=== PATIENT | female | born 1980 | race Caucasian/White ===

== ENCOUNTER 2016-08-18 22:32 | Emergency (ER) | payer SELFPAY ==
[~2016-08-18] VITALS: Ht 157.4 cm; Wt 77.1 kg
[~2016-08-18 22:32] MED LIST: ALLEGRA180 MG PO; AMINOPHYLLIN200 MG PO; AMOXICILLIN500 M2 PO; AMOXICILLIN500 MG PO; AMOXIL250 MG/5 M PO; AMOXIL400 MG/5 M PO; AMOXIL500 MG PO; ANAPROX DS550 MG PO; ANTIBIOTIC O500 U/GM TP; ATARAX25 MG PO; AURALGAN 14 ML14 ML OT; BACTRIM DS 8001 TA1 PO; BACTROBAN CREAM15 GM PO; CEFTIN250 MG/5 M PO; CEPHALEXIN250 MG/5 M PO; CEPHALEXIN500 M1 PO; CIPRO250 MG PO; CIPRO500 MG PO; CIPRODEX 0.3%-7.5 ML OT; CIPROFLOXACIN500 MG PO; CLINDAMYCIN150 MG PO; CORTISPORIN 1%-10 M1 OT; CYCLOBENZAPRINE10 MG PO; DAYPRO600 M1 PO; DELSYM30 MG/5 ML PO; DEPO PROVER150 MG/M1 IM; DIPHENHYDRAMINE50 M1 PO; FLAGYL500 MG PO; FLEXERIL10 MG PO; FLONASE ALLERG9.9 ML NS; FLONASE0.05 MG/AC NS; HYDROCODONE BIT1 T11 PO; HYDROCORTISONE30 G2 T; IBUPROFEN 30 M800 MG PO; KEFLEX250 MG PO; KEFLEX250 MG/5 M PO; KENALOG0.1% TP; KENALOG0.11 TP; LEXAPRO10 MG PO; LIDEX 0.05% CRE15 GM T; LIDEX0.05% T; LOMOTIL 0.025 M1 TA1 PO; LOTRIMIN 1%15 GM T; LOTRISONE 0.05%1 CRE TP; MACROBID100 M1; MACROBID100 M1 PO; MEDROL DOSEPAK4 MG PO; MOTRIN CHI100 MG/51 PO; MOTRIN800 MG PO; Motrin,Rufen800 MG PO; NAPROSYN500 MG PO; NAPROXEN125 MG/5 M PO; NITROFURANTOIN100 MG PO; NKHM; NO DAILY MEDS; NYSTATIN CREAM15 GM T; OMNICEF300 MG PO; PENICILLIN250 MG PO; PERCOCET 325 MG1 TA2 PO; PHENERGAN12.5 M1 PO; POLYTRIM 1000010 M1 OP; PREDNICOT20 MG PO; PREDNISONE10 MG PO; PREDNISONE20 M1 PO; PRENATAL 191 CTB PO; PRENATAL1 TA1; PRENATAL1 TA1 PO; PRENATAL1 TA1 PT; PROTONIX40 MG PO; PROZAC40 MG PO; PYRIDIUM200 M1 PO; PYRIDIUM200 MG PO; ROBAXIN750 MG PO; ROBITUSSIN-AC 160 ML PO; SEPTRA DS 800 M1 TAB PO; SULFAMETHOXAZO480 ML PO; TRAMADOL HCL50 MG PO; TRIMOX500 MG PO; TYLENOL EX500 MG/15 PO; TYLENOL W/CODEI1 TA2 PO; TYLENOL325 M1 PO; VALIUM5 MG PO; VICODIN 5/500 505 MG PO; VOLTAREN50 M1 PO; ZITHROMAX Z PA250 MG PO; ZITHROMAX200 MG/51 PO; ZOFRAN ODT4 MG SL; ZOLOFT20 MG/ML PO; ZYRTEC10 M2 PO; ZYRTEC10 M3 PO; ZYRTEC10 MG PO; Zithromax200 MG/5 M PO; Zofran4 MG PO; [UNRECOGNIZED DRUG - MIXTURE] OT
[2016-08-18 22:36] VITALS: BP 120/71
[2016-08-18 23:12] LABS: BILIRUBIN NEGATIVE (NEGATIVE); BLOOD NEGATIVE (NEGATIVE); CLARITY CLEAR (CLEAR); COLOR YELLOW (YELLOW); GLUCOSE NEGATIVE (NEGATIVE); KETONE NEGATIVE (NEGATIVE); LEUKO ESTERASE NEGATIVE (NEGATIVE); NITRITE NEGATIVE (NEGATIVE); PROTEIN NEGATIVE (NEGATIVE); SPECIFIC GRAVITY 1.025 (1.005-1.030); UROBILINOGEN 0.2 E.U./dl (0.2-1.0)
[2016-08-18 23:27] LABS: BACTERIA 3+; URINE REFLEX COMMENT YES (NO)
[2016-08-18] MEDS ORDERED: ZOFRAN ODT4 MG SL (23:55)
== END 2016-08-19 00:24 | disposition home or self-care (01) ==
LOC: ED 22:32
PROVIDERS: Physician Assistant
DX: A08.4 Viral intestinal infection, unspecified (principal); H92.01 Otalgia, right ear

== ENCOUNTER 2016-09-05 15:34 | Emergency (ER) | payer SELFPAY ==
[~2016-09-05] VITALS: Ht 157.4 cm; Wt 83.5 kg
[2016-09-05 15:56] VITALS: BP 113/73
[2016-09-05] MEDS ORDERED: CEFDINIR250 MG/5 M PO (16:04)
== END 2016-09-05 16:09 | disposition home or self-care (01) ==
LOC: ED 15:34
DX: J02.9 Acute pharyngitis, unspecified (principal); J06.9 Acute upper respiratory infection, unspecified; Z98.890 Other specified postprocedural states; Z98.51 Tubal ligation status

== ENCOUNTER 2017-06-20 08:48 | Emergency (ER) | payer OTHER ==
[~2017-06-20] VITALS: Wt 90.7 kg
[~2017-06-20 08:48] MED LIST changes: +CEFDINIR250 MG/5 M PO
[2017-06-20 08:57] VITALS: BP 138/80
== END 2017-06-20 09:36 | disposition home or self-care (01) ==
LOC: ED 08:48
DX: J02.9 Acute pharyngitis, unspecified (principal); R59.1 Generalized enlarged lymph nodes

== ENCOUNTER 2020-05-18 14:19 | Emergency (ER) | payer SELFPAY ==
[~2020-05-18] VITALS: Ht 157.4 cm; Wt 102.1 kg
[2020-05-18 14:29] VITALS: BP 134/70
[2020-05-18] MEDS ORDERED: AUGMENTIN 875-875 MG PO (14:48)
[2020-05-18] MEDS ORDERED: CLARITIN10 MG PO (14:48)
[2020-05-18] MEDS ORDERED: FLONASE ALLERG9.9 ML NAS (14:48)
== END 2020-05-18 14:55 | disposition home or self-care (01) ==
LOC: ED 14:19
DX: J01.90 Acute sinusitis, unspecified (principal); F32.9 Major depressive disorder, single episode, unspecified

== ENCOUNTER 2020-05-27 17:23 | Emergency (ER) | payer SELFPAY ==
[~2020-05-27] VITALS: Wt 99.8 kg
[~2020-05-27 17:23] MED LIST changes: +AUGMENTIN 875-875 MG PO; +CLARITIN10 MG PO; +FLONASE ALLERG9.9 ML NAS
[2020-05-27 17:35] VITALS: BP 128/81
[2020-05-27] MEDS ORDERED: OFLOXACIN OTIC5 ML OT ×3 (18:13→18:22)
== END 2020-05-27 18:16 | disposition home or self-care (01) ==
LOC: ED 17:23
DX: H83.8X2 Other specified diseases of left inner ear (principal); Z79.899 Other long term (current) drug therapy

== ENCOUNTER 2021-02-07 23:22 | Emergency (ER) | payer SELFPAY ==
[~2021-02-07] VITALS: Ht 157.4 cm; Wt 71.7 kg
[~2021-02-07 23:22] MED LIST changes: +OFLOXACIN OTIC5 ML OT
[2021-02-07 23:33] VITALS: BP 136/88
[2021-02-07] MEDS ORDERED: KENALOG 0.025%15 GM T (23:44)
== END 2021-02-08 00:38 | disposition home or self-care (01) ==
LOC: ED 23:22
DX: L25.9 Unspecified contact dermatitis, unspecified cause (principal); Z79.899 Other long term (current) drug therapy; Z98.890 Other specified postprocedural states

== ENCOUNTER 2021-03-15 17:32 | Emergency (ER) | payer SELFPAY ==
[~2021-03-15] VITALS: Wt 68.9 kg
[~2021-03-15 17:32] MED LIST changes: +KENALOG 0.025%15 GM T
[2021-03-15 17:36] VITALS: BP 140/79
[2021-03-15 18:21] LABS: BASO % 0.3 % (0.0-1.0); EOS # 0.1 10*3/uL (0.0-0.4); EOS % 1.2 % (1.0-4.0); HEMATOCRIT 38.2 % (37.0-47.0); LYMPH # 1.7 10*3/uL (1.3-4.4); LYMPH % 16.3 % (27.0-41.0); MEAN CORPUSCULAR HGB 29.6 pg (27.0-31.0); MEAN CORPUSCULAR HGB CONC 32.2 g/dl (33.0-37.0); MEAN PLATELET VOLUME 9.3 fl (9.6-12.3); MONO # 0.5 10*3/uL (0.1-1.0); MONO % 5.2 % (3.0-9.0); NEUT # 8.1 10*3/uL (2.3-7.9); NEUT % 76.8 % (47.0-73.0); PLATELET COUNT AUTOMATED 281 10*3/uL (130-400); RED BLOOD COUNT 4.15 10*6/uL (4.10-5.10); RED CELL DISTRI WIDTH 13.1 % (0-14.5); WHITE BLOOD COUNT 10.5 10*3/uL (4.8-10.8)
[2021-03-15 18:37] LABS: ALBUMIN 3.1 gm/dl (3.1-4.5); ALKALINE PHOSPHATASE 86 U/L (45-117); BUN 14 mg/dl (7-24); CHLORIDE 107 mmol/L (98-107); CREATININE 0.64 mg/dL (0.55-1.02); POTASSIUM 3.9 mmol/L (3.5-5.1); SGOT/AST 10 IU/L (3-35); SGPT/ALT 14 U/L (12-78); SODIUM 139 mmol/L (136-145); TOTAL PROTEIN 7.7 gm/dL (6.4-8.2)
[2021-03-15] MEDS ORDERED: SEPTDS PO ×2 (18:59)
[2021-03-15] MEDS ORDERED: CEPHALEXIN500 M1 PO ×2 (18:59)
== END 2021-03-15 19:04 | disposition home or self-care (01) ==
LOC: ED 17:32
PROVIDERS: Physician Assistant
DX: L03.317 Cellulitis of buttock (principal); Z79.2 Long term (current) use of antibiotics; Z79.899 Other long term (current) drug therapy; Z98.51 Tubal ligation status

== ENCOUNTER 2021-03-27 15:44 | Inpatient (IN) | payer SELFPAY ==
[~2021-03-27] VITALS: Ht 157.4 cm; Wt 71.0 kg
[~2021-03-27 15:44] MED LIST changes: +SEPTDS PO
[2021-03-27 16:06] VITALS: BP 103/60
[2021-03-27 16:35] LABS: BASO % 0.1 % (0.0-1.0); EOS # 0.2 10*3/uL (0.0-0.4); EOS % 2.4 % (1.0-4.0); HEMATOCRIT 37.9 % (37.0-47.0); LYMPH # 1.6 10*3/uL (1.3-4.4); LYMPH % 19.5 % (27.0-41.0); MEAN CELL VOLUME 90.9 fl (81.0-99.0); MEAN CORPUSCULAR HGB 29.7 pg (27.0-31.0); MEAN CORPUSCULAR HGB CONC 32.7 g/dl (33.0-37.0); MEAN PLATELET VOLUME 9.4 fl (9.6-12.3); MONO # 0.5 10*3/uL (0.1-1.0); MONO % 5.7 % (3.0-9.0); NEUT # 5.8 10*3/uL (2.3-7.9); NEUT % 72.1 % (47.0-73.0); PLATELET COUNT AUTOMATED 318 10*3/uL (130-400); RED BLOOD COUNT 4.17 10*6/uL (4.10-5.10); RED CELL DISTRI WIDTH 12.8 % (0-14.5); WHITE BLOOD COUNT 8.1 10*3/uL (4.8-10.8)
[2021-03-27 16:58] LABS: ALKALINE PHOSPHATASE 80 U/L (45-117); BUN 9 mg/dl (7-24); CHLORIDE 110 mmol/L (98-107); CREATININE 0.78 mg/dL (0.55-1.02); POTASSIUM 3.9 mmol/L (3.5-5.1); SGOT/AST 9 IU/L (3-35); SGPT/ALT 13 U/L (12-78); SODIUM 142 mmol/L (136-145); TOTAL PROTEIN 7.9 gm/dL (6.4-8.2)
[2021-03-27 20:01] VITALS: BP 111/64
[2021-03-27 23:00] VITALS: BP 106/60
[2021-03-28 06:32] LABS: BASO % 0.4 % (0.0-1.0); EOS # 0.3 10*3/uL (0.0-0.4); EOS % 4.1 % (1.0-4.0); HEMATOCRIT 35.6 % (37.0-47.0); LYMPH # 2.7 10*3/uL (1.3-4.4); LYMPH % 35.8 % (27.0-41.0); MEAN CELL VOLUME 90.8 fl (81.0-99.0); MEAN CORPUSCULAR HGB 30.1 pg (27.0-31.0); MEAN CORPUSCULAR HGB CONC 33.1 g/dl (33.0-37.0); MEAN PLATELET VOLUME 9.7 fl (9.6-12.3); MONO # 0.7 10*3/uL (0.1-1.0); MONO % 9.5 % (3.0-9.0); NEUT # 3.8 10*3/uL (2.3-7.9); NEUT % 49.8 % (47.0-73.0); PLATELET COUNT AUTOMATED 293 10*3/uL (130-400); RED BLOOD COUNT 3.92 10*6/uL (4.10-5.10); RED CELL DISTRI WIDTH 12.9 % (0-14.5); WHITE BLOOD COUNT 7.6 10*3/uL (4.8-10.8)
[2021-03-28 06:35] LABS: ALBUMIN 2.6 gm/dl (3.1-4.5); BUN 12 mg/dl (7-24); CHLORIDE 110 mmol/L (98-107); POTASSIUM 3.8 mmol/L (3.5-5.1); SGOT/AST 9 IU/L (3-35); SGPT/ALT 11 U/L (12-78); SODIUM 142 mmol/L (136-145)
[2021-03-28 06:37] LABS: ALKALINE PHOSPHATASE 71 U/L (45-117); TOTAL PROTEIN 7.2 gm/dL (6.4-8.2)
[2021-03-28 08:00] VITALS: BP 116/76
[2021-03-28 12:00] VITALS: BP 122/76
[2021-03-28 16:00] VITALS: BP 110/58
[2021-03-28 20:00] VITALS: BP 121/78
[2021-03-29] VITALS: BP 121/73
[2021-03-29 06:17] LABS: BASO % 0.4 % (0.0-1.0); EOS # 0.3 10*3/uL (0.0-0.4); EOS % 3.6 % (1.0-4.0); LYMPH # 2.7 10*3/uL (1.3-4.4); LYMPH % 36.3 % (27.0-41.0); MEAN CELL VOLUME 91.4 fl (81.0-99.0); MEAN CORPUSCULAR HGB CONC 32.9 g/dl (33.0-37.0); MEAN PLATELET VOLUME 9.9 fl (9.6-12.3); MONO # 0.7 10*3/uL (0.1-1.0); NEUT # 3.7 10*3/uL (2.3-7.9); NEUT % 50.4 % (47.0-73.0); PLATELET COUNT AUTOMATED 286 10*3/uL (130-400); RED BLOOD COUNT 3.83 10*6/uL (4.10-5.10); RED CELL DISTRI WIDTH 12.5 % (0-14.5); WHITE BLOOD COUNT 7.4 10*3/uL (4.8-10.8)
[2021-03-29 06:22] LABS: BUN 17 mg/dl (7-24); CHLORIDE 110 mmol/L (98-107); CREATININE 0.77 mg/dL (0.55-1.02); SODIUM 141 mmol/L (136-145)
[2021-03-29 08:00] VITALS: BP 115/60
[2021-03-29] MEDS ORDERED: DOXYCYCLINE MO100 M1 PO (11:08)
[2021-03-29 12:00] VITALS: BP 114/55
[2021-03-29 16:00] VITALS: BP 128/77
== END 2021-03-29 18:15 | disposition home or self-care (01) | DRG 603 ==
LOC: ED 15:44 → EDHOLD 17:14 → 4E 22:54
PROVIDERS: Internal Medicine; Student in an Organized Health Care Education/Training Program; ADMIT Emergency Medicine; ATTEND Emergency Medicine
PROC: 0H98XZZ Drainage of Buttock Skin, External Approach (ICD-10-PCS; principal; 2021-03-27)
DX: L02.31 Cutaneous abscess of buttock (principal); E44.0 Moderate protein-calorie malnutrition; L03.317 Cellulitis of buttock; E87.8 Other disorders of electrolyte and fluid balance, not elsewhere classified; E66.3 Overweight; D64.9 Anemia, unspecified; Z80.3 Family history of malignant neoplasm of breast; Z98.51 Tubal ligation status; Z80.49 Family history of malignant neoplasm of other genital organs; Z68.28 Body mass index [BMI] 28.0-28.9, adult

== ENCOUNTER 2022-02-06 14:23 | Emergency (ER) | payer OTHER ==
[~2022-02-06 14:23] MED LIST changes: +DOXYCYCLINE MO100 M1 PO; +OMEPRAZOLE20 M2 PO; +TOPAMAX25 M3 PO; +TOPROL XL25 MG PO; +TRAZODONE50 MG PO; +VIBRA-TAB100 MG PO; +ZOLOFT50 MG PO
[2022-02-06 14:30] VITALS: BP 131/78
== END 2022-02-06 14:50 | disposition home or self-care (01) ==
LOC: ED 14:23
DX: Z48.01 Encounter for change or removal of surgical wound dressing (principal)

== ENCOUNTER 2022-02-20 21:43 | Emergency (ER) | payer OTHER ==
[~2022-02-20] VITALS: Ht 167.6 cm; Wt 81.6 kg
[2022-02-20 21:55] VITALS: BP 130/81
[2022-02-20 22:44] LABS: BASO % 0.4 % (0.0-1.0); EOS # 0.3 10*3/uL (0.0-0.4); HEMATOCRIT 38.3 % (37.0-47.0); LYMPH # 2.5 10*3/uL (1.3-4.4); LYMPH % 23.9 % (27.0-41.0); MEAN CELL VOLUME 89.7 fl (81.0-99.0); MEAN CORPUSCULAR HGB CONC 33.4 g/dl (33.0-37.0); MEAN PLATELET VOLUME 9.6 fl (9.6-12.3); MONO # 0.6 10*3/uL (0.1-1.0); MONO % 5.9 % (3.0-9.0); NEUT # 7.1 10*3/uL (2.3-7.9); NEUT % 66.5 % (47.0-73.0); PLATELET COUNT AUTOMATED 257 10*3/uL (130-400); RED BLOOD COUNT 4.27 10*6/uL (4.10-5.10); RED CELL DISTRI WIDTH 12.6 % (0-14.5); WHITE BLOOD COUNT 10.6 10*3/uL (4.8-10.8)
[2022-02-20 23:00] LABS: ALKALINE PHOSPHATASE 72 U/L (45-117); BUN 10 mg/dl (7-24); CHLORIDE 112 mmol/L (98-107); CREATININE 0.76 mg/dL (0.55-1.02); LIPASE 111 U/L (73-393); POTASSIUM 3.6 mmol/L (3.5-5.1); SGOT/AST 8 IU/L (3-35); SGPT/ALT 15 U/L (12-78); SODIUM 143 mmol/L (136-145); TOTAL PROTEIN 7.2 gm/dL (6.4-8.2)
[2022-02-20 23:03] LABS: BETA-HCG, QUANT < 1.0 mIU/mL (1-3)
[2022-02-20 23:08] LABS: BILIRUBIN Negative (Negative); BLOOD Negative (Negative); CLARITY Cloudy (Clear); COLOR Yellow (Yellow); GLUCOSE Negative (Negative); KETONE Trace (Negative); LEUKO ESTERASE 1+ (Negative); NITRITE Negative (Negative); PH 5.5 (4.5-8.0)
[2022-02-20 23:24] LABS: EPITHELIAL CELLS 31-40
[2022-02-20 23:25] LABS: BACTERIA TRACE
[2022-02-21] MEDS ORDERED: MECLIZINE HCL25 M2 PO (00:58)
== END 2022-02-21 01:46 | disposition home or self-care (01) ==
LOC: ED 21:43
PROVIDERS: Nurse Practitioner Family
DX: R42 Dizziness and giddiness (principal); R11.2 Nausea with vomiting, unspecified; Z79.899 Other long term (current) drug therapy; Z98.51 Tubal ligation status; Z98.890 Other specified postprocedural states; Z87.891 Personal history of nicotine dependence

== ENCOUNTER 2022-03-16 22:31 | Emergency (ER) | payer OTHER ==
[~2022-03-16] VITALS: Ht 157.4 cm; Wt 78.0 kg
[~2022-03-16 22:31] MED LIST changes: +MECLIZINE HCL25 M2 PO
[2022-03-16 22:54] VITALS: BP 129/80
[2022-03-17] MEDS ORDERED: PEPCID20 MG PO (03:35)
[2022-03-17] MEDS ORDERED: MEDROL DOSEPAK4 MG PO ×2 (03:35)
[2022-03-17] MEDS ORDERED: DIPHENHYDRAMINE50 M1 PO ×2 (03:35)
== END 2022-03-17 03:51 | disposition home or self-care (01) ==
LOC: ED 22:31
DX: L50.9 Urticaria, unspecified (principal); K21.9 Gastro-esophageal reflux disease without esophagitis; G43.909 Migraine, unspecified, not intractable, without status migrainosus; E66.9 Obesity, unspecified; Z79.899 Other long term (current) drug therapy; Z98.51 Tubal ligation status; Z98.890 Other specified postprocedural states

== ENCOUNTER 2022-03-18 18:31 | Emergency (ER) | payer OTHER ==
[~2022-03-18] VITALS: Ht 157.4 cm; Wt 76.7 kg
[~2022-03-18 18:31] MED LIST changes: +PEPCID20 MG PO
[2022-03-18 18:49] VITALS: BP 129/80
[2022-03-19] MEDS ORDERED: KLOR-CON 1010 ME1 PO (10:52)
[2022-03-19] MEDS ORDERED: ONDANSETRON4 MG SL (10:52)
[2022-03-19] MEDS ORDERED: ANTIVERT25 M1 PO (10:52)
== END 2022-03-18 20:47 | disposition home or self-care (01) ==
LOC: ED 18:31
DX: S71.132A Puncture wound without foreign body, left thigh, initial encounter (principal); S90.31XA Contusion of right foot, initial encounter; S80.01XA Contusion of right knee, initial encounter; Z79.899 Other long term (current) drug therapy; Z87.891 Personal history of nicotine dependence; W18.39XA Other fall on same level, initial encounter; Y93.89 Activity, other specified; Y92.89 Other specified places as the place of occurrence of the external cause; Y99.8 Other external cause status

== ENCOUNTER 2022-03-19 09:05 | Emergency (ER) | payer OTHER ==
[~2022-03-19] VITALS: Wt 76.7 kg
[2022-03-19 09:09] VITALS: BP 123/63
[2022-03-19 09:40] LABS: BASO % 0.5 % (0.0-1.0); EOS # 0.4 10*3/uL (0.0-0.4); EOS % 4.4 % (1.0-4.0); LYMPH # 1.8 10*3/uL (1.3-4.4); MEAN CELL VOLUME 91.1 fl (81.0-99.0); MEAN CORPUSCULAR HGB 29.9 pg (27.0-31.0); MEAN CORPUSCULAR HGB CONC 32.9 g/dl (33.0-37.0); MEAN PLATELET VOLUME 9.4 fl (9.6-12.3); MONO # 0.6 10*3/uL (0.1-1.0); MONO % 6.6 % (3.0-9.0); NEUT # 5.9 10*3/uL (2.3-7.9); NEUT % 67.3 % (47.0-73.0); PLATELET COUNT AUTOMATED 246 10*3/uL (130-400); RED BLOOD COUNT 3.84 10*6/uL (4.10-5.10); RED CELL DISTRI WIDTH 12.9 % (0-14.5); WHITE BLOOD COUNT 8.8 10*3/uL (4.8-10.8)
[2022-03-19 09:52] LABS: BUN 14 mg/dl (7-24); CHLORIDE 112 mmol/L (98-107); CREATININE 0.76 mg/dL (0.55-1.02); SODIUM 143 mmol/L (136-145)
[2022-03-19 10:08] LABS: BILIRUBIN Negative (Negative); BLOOD Negative (Negative); CLARITY Cloudy (Clear); COLOR Yellow (Yellow); GLUCOSE Negative (Negative); KETONE Trace (Negative); LEUKO ESTERASE 1+ (Negative); NITRITE Negative (Negative); PH 5.5 (4.5-8.0); SPECIFIC GRAVITY >= 1.030 (1.001-1.030)
[2022-03-19 10:20] LABS: BACTERIA 2+; CALCIUM OXALATE CRYSTALS 2+; MUCOUS 2+
[2022-03-19] MEDS ORDERED: ANTIVERT25 M1 PO (10:52)
[2022-03-19] MEDS ORDERED: ONDANSETRON4 MG SL (10:52)
[2022-03-19] MEDS ORDERED: KLOR-CON 1010 ME1 PO (10:52)
== END 2022-03-19 10:51 | disposition home or self-care (01) ==
LOC: ED 09:05
PROVIDERS: Emergency Medicine
DX: R42 Dizziness and giddiness (principal); E87.6 Hypokalemia; Z79.899 Other long term (current) drug therapy; Z87.891 Personal history of nicotine dependence; Z98.51 Tubal ligation status; Z98.890 Other specified postprocedural states

== ENCOUNTER 2022-04-02 09:55 | Emergency (ER) | payer OTHER ==
[~2022-04-02] VITALS: Ht 157.4 cm; Wt 76.2 kg
[~2022-04-02 09:55] MED LIST changes: +ANTIVERT25 M1 PO; +KLOR-CON 1010 ME1 PO; +ONDANSETRON4 MG SL
[2022-04-02 10:06] VITALS: BP 116/74
== END 2022-04-02 12:53 | disposition home or self-care (01) ==
LOC: ED 09:55
DX: U07.1 COVID-19 (principal); K21.9 Gastro-esophageal reflux disease without esophagitis; G43.909 Migraine, unspecified, not intractable, without status migrainosus; E66.9 Obesity, unspecified; Z79.899 Other long term (current) drug therapy; Z68.35 Body mass index [BMI] 35.0-35.9, adult; Z98.51 Tubal ligation status

== ENCOUNTER 2022-05-19 23:57 | Emergency (ER) | payer OTHER ==
[~2022-05-19] VITALS: Ht 160 cm; Wt 72.6 kg
[2022-05-20 00:07] VITALS: BP 148/84
== END 2022-05-20 01:10 | disposition left against medical advice (07) ==
LOC: ED 23:57
DX: S01.01XA Laceration without foreign body of scalp, initial encounter (principal); Z79.899 Other long term (current) drug therapy; W01.190A Fall on same level from slipping, tripping and stumbling with subsequent striking against furniture, initial encounter; Y93.01 Activity, walking, marching and hiking; Y92.89 Other specified places as the place of occurrence of the external cause; Y99.9 Unspecified external cause status

== ENCOUNTER 2022-06-08 12:58 | Emergency (ER) | payer OTHER ==
[~2022-06-08] VITALS: Wt 78.0 kg
[2022-06-08 13:22] VITALS: BP 147/97
[2022-06-08] MEDS ORDERED: IBUPROFEN600 MG PO (14:02)
[2022-06-08] MEDS ORDERED: TOBRAMYCIN 5 ML5 M1 OPH (14:02)
== END 2022-06-08 14:09 | disposition home or self-care (01) ==
LOC: ED 12:58
DX: S05.01XA Injury of conjunctiva and corneal abrasion without foreign body, right eye, initial encounter (principal); Z79.899 Other long term (current) drug therapy; Z98.51 Tubal ligation status; Z98.890 Other specified postprocedural states; W22.8XXA Striking against or struck by other objects, initial encounter; Y93.89 Activity, other specified; Y92.89 Other specified places as the place of occurrence of the external cause; Y99.8 Other external cause status

== ENCOUNTER 2022-06-26 02:23 | Emergency (ER) | payer OTHER ==
[~2022-06-26] VITALS: Ht 157.4 cm; Wt 76.7 kg
[~2022-06-26 02:23] MED LIST changes: +IBUPROFEN600 MG PO; +TOBRAMYCIN 5 ML5 M1 OPH
[2022-06-26 02:30] VITALS: BP 151/95
[2022-06-26] MEDS ORDERED: VIBRAMYCIN100 MG PO (04:18)
[2022-06-26] MEDS ORDERED: CEPHALEXIN500 M1 PO (04:18)
== END 2022-06-26 04:28 | disposition home or self-care (01) ==
LOC: ED 02:23
DX: L02.413 Cutaneous abscess of right upper limb (principal); K21.9 Gastro-esophageal reflux disease without esophagitis; G43.909 Migraine, unspecified, not intractable, without status migrainosus; E66.9 Obesity, unspecified; Z68.35 Body mass index [BMI] 35.0-35.9, adult; Z98.51 Tubal ligation status; Z87.891 Personal history of nicotine dependence

== ENCOUNTER 2022-08-05 02:54 | Emergency (ER) | payer OTHER ==
[~2022-08-05] VITALS: Ht 157.4 cm; Wt 72.6 kg
[~2022-08-05 02:54] MED LIST changes: +VIBRAMYCIN100 MG PO
[2022-08-05 03:10] VITALS: BP 136/92
[2022-08-05 03:28] LABS: BASO % 0.3 % (0.0-1.0); EOS # 0.3 10*3/uL (0.0-0.4); HEMATOCRIT 38.4 % (37.0-47.0); LYMPH # 1.8 10*3/uL (1.3-4.4); LYMPH % 28.7 % (27.0-41.0); MEAN CELL VOLUME 89.3 fl (81.0-99.0); MEAN CORPUSCULAR HGB 29.3 pg (27.0-31.0); MEAN CORPUSCULAR HGB CONC 32.8 g/dl (33.0-37.0); MEAN PLATELET VOLUME 9.2 fl (9.6-12.3); MONO # 0.5 10*3/uL (0.1-1.0); MONO % 7.9 % (3.0-9.0); NEUT # 3.7 10*3/uL (2.3-7.9); NEUT % 58.9 % (47.0-73.0); PLATELET COUNT AUTOMATED 297 10*3/uL (130-400); WHITE BLOOD COUNT 6.2 10*3/uL (4.8-10.8)
[2022-08-05 03:42] LABS: BUN 20 mg/dl (9-23); CHLORIDE 105 mmol/L (98-107); CREATININE 0.83 mg/dL (0.55-1.02); POTASSIUM 4.1 mmol/L (3.4-5.1); SODIUM 138 mmol/L (136-145)
== END 2022-08-05 03:56 | disposition home or self-care (01) ==
LOC: ED 02:54
PROVIDERS: Internal Medicine
DX: G56.03 Carpal tunnel syndrome, bilateral upper limbs (principal); Z98.51 Tubal ligation status; Z98.890 Other specified postprocedural states

== ENCOUNTER 2022-09-13 12:30 | Emergency (ER) | payer OTHER ==
[~2022-09-13] VITALS: Wt 71.7 kg
[2022-09-13 12:41] VITALS: BP 128/70
[2022-09-13 13:16] LABS: BASO % 0.3 % (0.0-1.0); EOS # 0.2 10*3/uL (0.0-0.4); EOS % 2.1 % (1.0-4.0); HEMATOCRIT 37.2 % (37.0-47.0); LYMPH # 1.2 10*3/uL (1.3-4.4); LYMPH % 16.6 % (27.0-41.0); MEAN CELL VOLUME 90.7 fl (81.0-99.0); MEAN CORPUSCULAR HGB 29.3 pg (27.0-31.0); MEAN CORPUSCULAR HGB CONC 32.3 g/dl (33.0-37.0); MEAN PLATELET VOLUME 9.4 fl (9.6-12.3); MONO # 0.8 10*3/uL (0.1-1.0); MONO % 10.5 % (3.0-9.0); NEUT # 5.1 10*3/uL (2.3-7.9); NEUT % 70.2 % (47.0-73.0); PLATELET COUNT AUTOMATED 245 10*3/uL (130-400); RED CELL DISTRI WIDTH 13.2 % (0-14.5); WHITE BLOOD COUNT 7.2 10*3/uL (4.8-10.8)
[2022-09-13 13:34] LABS: ALKALINE PHOSPHATASE 80 U/L (46-116); BUN 15 mg/dl (9-23); CHLORIDE 105 mmol/L (98-107); SGPT/ALT 16 U/L (10-49); TOTAL PROTEIN 7.3 gm/dL (6.0-8.0)
== END 2022-09-13 15:02 | disposition left against medical advice (07) ==
LOC: ED 12:30
PROVIDERS: Nurse Practitioner Family
DX: U07.1 COVID-19 (principal); Z98.51 Tubal ligation status; Z98.890 Other specified postprocedural states; Z87.891 Personal history of nicotine dependence

== ENCOUNTER 2022-09-23 02:18 | Emergency (ER) | payer OTHER ==
[~2022-09-23] VITALS: Ht 157.4 cm; Wt 71.7 kg
[2022-09-23 04:26] LABS: BASO % 0.3 % (0.0-1.0); EOS # 0.2 10*3/uL (0.0-0.4); HEMATOCRIT 37.4 % (37.0-47.0); LYMPH # 1.7 10*3/uL (1.3-4.4); LYMPH % 18.4 % (27.0-41.0); MEAN CELL VOLUME 88.2 fl (81.0-99.0); MEAN CORPUSCULAR HGB 29.2 pg (27.0-31.0); MEAN CORPUSCULAR HGB CONC 33.2 g/dl (33.0-37.0); MONO # 0.6 10*3/uL (0.1-1.0); MONO % 6.3 % (3.0-9.0); NEUT # 6.6 10*3/uL (2.3-7.9); NEUT % 72.8 % (47.0-73.0); PLATELET COUNT AUTOMATED 289 10*3/uL (130-400); RED BLOOD COUNT 4.24 10*6/uL (4.10-5.10); RED CELL DISTRI WIDTH 12.8 % (0-14.5)
[2022-09-23 04:53] LABS: ALKALINE PHOSPHATASE 76 U/L (46-116); BUN 15 mg/dl (9-23); CHLORIDE 105 mmol/L (98-107); POTASSIUM 4.2 mmol/L (3.4-5.1); SGPT/ALT 8 U/L (10-49); TOTAL PROTEIN 7.7 gm/dL (6.0-8.0)
[2022-09-23 07:22] VITALS: BP 125/75
[2022-09-23 08:42] LABS: BILIRUBIN Negative (Negative); BLOOD Negative (Negative); CLARITY Clear (Clear); COLOR Yellow (Yellow); GLUCOSE Negative (Negative); KETONE Negative (Negative); LEUKO ESTERASE 1+ (Negative); NITRITE Positive (Negative); UROBILINOGEN 0.2 E.U./dl (0.0-1.0)
[2022-09-23 08:53] LABS: URINE AMPHETAMINES Positive (1000ng/ml); URINE BARBITURATES Negative (200ng/ml); URINE BENZODIAZEPINES Negative (200ng/ml); URINE CANNABINOIDS (THC) Negative (50ng/ml); URINE COCAINE Negative (300ng/ml); URINE METHADONE Negative (300ng/ml); URINE OPIATES Negative (300ng/ml); URINE PHENCYCLIDINE Negative (25ng/ml)
[2022-09-23 09:25] LABS: BACTERIA 3+; RBC 0-2 rbc/hpf (0-2)
== END 2022-09-23 08:00 | disposition short-term general hospital (02) ==
LOC: ED 02:18
PROVIDERS: Emergency Medicine
DX: S02.831A Fracture of medial orbital wall, right side, initial encounter for closed fracture (principal); S05.11XA Contusion of eyeball and orbital tissues, right eye, initial encounter; K21.9 Gastro-esophageal reflux disease without esophagitis; G43.909 Migraine, unspecified, not intractable, without status migrainosus; E66.9 Obesity, unspecified; Z98.51 Tubal ligation status; Z98.890 Other specified postprocedural states; Z87.891 Personal history of nicotine dependence; Y08.89XA Assault by other specified means, initial encounter; Y93.89 Activity, other specified; Y92.89 Other specified places as the place of occurrence of the external cause; Y99.8 Other external cause status

== ENCOUNTER 2022-10-18 03:24 | Emergency (ER) | payer OTHER ==
[2022-10-18 03:39] VITALS: BP 155/90
== END 2022-10-18 03:55 | disposition home or self-care (01) ==
LOC: ED 03:24
DX: S93.401A Sprain of unspecified ligament of right ankle, initial encounter (principal); Z98.51 Tubal ligation status; Z98.890 Other specified postprocedural states; X50.1XXA Overexertion from prolonged static or awkward postures, initial encounter; Y93.89 Activity, other specified; Y92.89 Other specified places as the place of occurrence of the external cause; Y99.8 Other external cause status

== ENCOUNTER 2022-10-27 07:32 | Emergency (ER) | payer OTHER ==
[~2022-10-27] VITALS: Wt 72.6 kg
[2022-10-27 07:44] VITALS: BP 138/91
== END 2022-10-27 08:07 | disposition home or self-care (01) ==
LOC: ED 07:32
DX: S61.211A Laceration without foreign body of left index finger without damage to nail, initial encounter (principal); F17.210 Nicotine dependence, cigarettes, uncomplicated; Z98.51 Tubal ligation status; Z98.890 Other specified postprocedural states; W26.0XXA Contact with knife, initial encounter; Y93.89 Activity, other specified; Y92.89 Other specified places as the place of occurrence of the external cause; Y99.8 Other external cause status

== ENCOUNTER 2022-11-02 14:34 | Emergency (ER) | payer OTHER ==
[~2022-11-02] VITALS: Ht 160 cm; Wt 76.2 kg
[2022-11-02 15:18] VITALS: BP 127/85
[2022-11-02] MEDS ORDERED: VIBRA-TAB100 MG PO (16:52)
== END 2022-11-02 16:50 | disposition left against medical advice (07) ==
LOC: ED 14:34
DX: N61.1 Abscess of the breast and nipple (principal); M25.561 Pain in right knee; F32.A Depression, unspecified; Z98.51 Tubal ligation status; Z98.890 Other specified postprocedural states; F17.210 Nicotine dependence, cigarettes, uncomplicated; F12.90 Cannabis use, unspecified, uncomplicated

== ENCOUNTER 2022-12-09 21:24 | Emergency (ER) | payer OTHER ==
[~2022-12-09] VITALS: Ht 167.6 cm; Wt 72.6 kg
[2022-12-09 21:29] VITALS: BP 154/98
[2022-12-09 21:43] LABS: BILIRUBIN Negative (Negative); BLOOD Negative (Negative); CLARITY Clear (Clear); COLOR Yellow (Yellow); GLUCOSE Negative (Negative); KETONE Negative (Negative); LEUKO ESTERASE 1+ (Negative); NITRITE Positive (Negative); PH 5.5 (4.5-8.0); SPECIFIC GRAVITY 1.025 (1.001-1.030); UROBILINOGEN 0.2 E.U./dl (0.0-1.0)
[2022-12-09 21:57] LABS: BACTERIA 3+; RBC 0-2 rbc/hpf (0-2); WBC 21-30 wbc/hpf (0-5)
[2022-12-09] MEDS ORDERED: CIPRO500 MG PO (22:35)
== END 2022-12-09 22:51 | disposition home or self-care (01) ==
LOC: ED 21:24
PROVIDERS: Internal Medicine
DX: N39.0 Urinary tract infection, site not specified (principal); Z20.2 Contact with and (suspected) exposure to infections with a predominantly sexual mode of transmission; F17.210 Nicotine dependence, cigarettes, uncomplicated; Z98.51 Tubal ligation status; Z98.890 Other specified postprocedural states

== ENCOUNTER 2022-12-29 22:11 | Emergency (ER) | payer OTHER ==
[~2022-12-29] VITALS: Ht 157.4 cm; Wt 71.7 kg
[2022-12-29 22:21] VITALS: BP 125/78
[2022-12-30] MEDS ORDERED: TRAMADOL HCL50 MG PO (01:11)
== END 2022-12-30 01:24 | disposition home or self-care (01) ==
LOC: ED 22:11
DX: S02.40EA Zygomatic fracture, right side, initial encounter for closed fracture (principal); K21.9 Gastro-esophageal reflux disease without esophagitis; E83.41 Hypermagnesemia; E87.6 Hypokalemia; G43.909 Migraine, unspecified, not intractable, without status migrainosus; F32.A Depression, unspecified; F12.90 Cannabis use, unspecified, uncomplicated; Z98.51 Tubal ligation status; Z98.890 Other specified postprocedural states; F15.90 Other stimulant use, unspecified, uncomplicated; F17.210 Nicotine dependence, cigarettes, uncomplicated; W22.03XA Walked into furniture, initial encounter; Y93.89 Activity, other specified; Y92.009 Unspecified place in unspecified non-institutional (private) residence as the place of occurrence of the external cause; Y99.8 Other external cause status

== ENCOUNTER 2022-12-31 14:21 | Emergency (ER) | payer OTHER ==
[2022-12-31 14:49] VITALS: BP 151/87
== END 2022-12-31 16:08 | disposition home or self-care (01) ==
LOC: ED 14:21
DX: S50.12XA Contusion of left forearm, initial encounter (principal); S50.11XA Contusion of right forearm, initial encounter; M54.2 Cervicalgia; M79.642 Pain in left hand; Y08.89XA Assault by other specified means, initial encounter; Y93.89 Activity, other specified; Y92.89 Other specified places as the place of occurrence of the external cause; Y99.8 Other external cause status

== ENCOUNTER → 2023-01-26 | Outpatient (CLI) | payer OTHER ==
[2023-01-26 10:04] LABS: BILIRUBIN Negative (Negative); BLOOD Negative (Negative); CLARITY Clear (Clear); COLOR Yellow (Yellow); GLUCOSE Negative (Negative); KETONE Negative (Negative); LEUKO ESTERASE 1+ (Negative); NITRITE Negative (Negative); PH 5.5 (4.5-8.0); SPECIFIC GRAVITY 1.025 (1.001-1.030)
[2023-01-26 10:05] LABS: BASO % 0.5 % (0.0-1.0); EOS # 0.2 10*3/uL (0.0-0.4); EOS % 3.1 % (1.0-4.0); HEMATOCRIT 42.5 % (37.0-47.0); LYMPH # 1.9 10*3/uL (1.3-4.4); LYMPH % 29.2 % (27.0-41.0); MEAN CELL VOLUME 89.1 fl (81.0-99.0); MEAN CORPUSCULAR HGB 29.4 pg (27.0-31.0); MEAN CORPUSCULAR HGB CONC 32.9 g/dl (33.0-37.0); MEAN PLATELET VOLUME 9.2 fl (9.6-12.3); MONO # 0.5 10*3/uL (0.1-1.0); MONO % 7.5 % (3.0-9.0); NEUT # 3.8 10*3/uL (2.3-7.9); NEUT % 59.4 % (47.0-73.0); PLATELET COUNT AUTOMATED 333 10*3/uL (130-400); RED BLOOD COUNT 4.77 10*6/uL (4.10-5.10); RETICULOCYTE % 0.68 % (0.50-2.50); WHITE BLOOD COUNT 6.4 10*3/uL (4.8-10.8)
[2023-01-26 10:35] LABS: ALKALINE PHOSPHATASE 79 U/L (46-116); BUN 10 mg/dl (9-23); CHLORIDE 106 mmol/L (98-107); CHOLESTEROL 110 mg/dL (<200); GAMMA GLUTAMYL TRANSPEPTIDASE 9 U/L (0-73); LDL CHOLESTEROL 53 mg/dL (9-159); POTASSIUM 3.8 mmol/L (3.4-5.1); SGPT/ALT 9 U/L (10-49); T3 UPTAKE 31.5 % (22.4-36.7); THYROID STIM HORMONE (HS) 0.686 uIU/ml (0.550-4.780); THYROXINE (T4) TOTAL 11.4 ug/dl (4.5-10.9); TOTAL PROTEIN 8.5 gm/dL (6.0-8.0); TRIGLYCERIDES 43 mg/dl (<150)
[2023-01-26 10:44] LABS: VITAMIN D, 25-HYDROXY 34.9 ng/mL (30-100)
[2023-01-26 10:51] LABS: CALCIUM OXALATE CRYSTALS 1+; WBC 16-20 wbc/hpf (0-5)
[2023-01-26 10:52] LABS: BACTERIA 2+; MUCOUS 1+
[2023-01-27 05:07] LABS: HBSAG Negative (Negative); HEP B CORE AB, IGM Negative (Negative)
[2023-01-29 18:06] LABS: HEPATITIS C ANTIBODY Reactive (Non Reactive)
== END | disposition home or self-care (01) ==
LOC: LAB 09:33
PROVIDERS: ATTEND Family Medicine
DX: E78.5 Hyperlipidemia, unspecified (principal); E55.9 Vitamin D deficiency, unspecified; R79.89 Other specified abnormal findings of blood chemistry; R74.8 Abnormal levels of other serum enzymes; R53.83 Other fatigue

== ENCOUNTER 2023-02-21 14:04 | Emergency (ER) | payer OTHER ==
[~2023-02-21] VITALS: Wt 72.6 kg
[2023-02-21 17:18] LABS: BASO % 0.4 % (0.0-1.0); EOS # 0.3 10*3/uL (0.0-0.4); EOS % 3.5 % (1.0-4.0); HEMATOCRIT 41.8 % (37.0-47.0); LYMPH # 2.1 10*3/uL (1.3-4.4); LYMPH % 29.6 % (27.0-41.0); MEAN CELL VOLUME 89.3 fl (81.0-99.0); MEAN CORPUSCULAR HGB 29.7 pg (27.0-31.0); MEAN CORPUSCULAR HGB CONC 33.3 g/dl (33.0-37.0); MEAN PLATELET VOLUME 9.8 fl (9.6-12.3); MONO # 0.5 10*3/uL (0.1-1.0); NEUT # 4.2 10*3/uL (2.3-7.9); NEUT % 59.2 % (47.0-73.0); PLATELET COUNT AUTOMATED 234 10*3/uL (130-400); RED BLOOD COUNT 4.68 10*6/uL (4.10-5.10); RED CELL DISTRI WIDTH 13.5 % (0-14.5); WHITE BLOOD COUNT 7.1 10*3/uL (4.8-10.8)
[2023-02-21 17:28] LABS: ACT PARTIAL THROMBO TIME 27.1 SECONDS (20.0-32.1)
[2023-02-21 17:38] LABS: ALKALINE PHOSPHATASE 80 U/L (46-116); BUN 10 mg/dl (9-23); CHLORIDE 107 mmol/L (98-107); LIPASE 45 U/L (12-53); POTASSIUM 4.3 mmol/L (3.4-5.1); SGPT/ALT 9 U/L (10-49); TOTAL PROTEIN 7.7 gm/dL (6.0-8.0)
[2023-02-21 21:26] VITALS: BP 131/74
== END 2023-02-22 04:15 | disposition home or self-care (01) ==
LOC: ED 14:04
PROVIDERS: Emergency Medicine
DX: R42 Dizziness and giddiness (principal); K21.9 Gastro-esophageal reflux disease without esophagitis; F32.A Depression, unspecified; G43.909 Migraine, unspecified, not intractable, without status migrainosus; Z86.16 Personal history of COVID-19; Z98.51 Tubal ligation status; Z98.890 Other specified postprocedural states; F19.10 Other psychoactive substance abuse, uncomplicated

== ENCOUNTER 2023-04-22 08:36 | Emergency (ER) | payer OTHER ==
[2023-04-22 09:02] VITALS: BP 125/87
== END 2023-04-22 12:14 | disposition home or self-care (01) ==
LOC: ED 08:36
DX: S69.92XA Unspecified injury of left wrist, hand and finger(s), initial encounter (principal); F32.A Depression, unspecified; Z98.51 Tubal ligation status; Z98.890 Other specified postprocedural states; F17.210 Nicotine dependence, cigarettes, uncomplicated; F15.90 Other stimulant use, unspecified, uncomplicated; F12.90 Cannabis use, unspecified, uncomplicated; W19.XXXA Unspecified fall, initial encounter; Y93.89 Activity, other specified; Y92.89 Other specified places as the place of occurrence of the external cause; Y99.8 Other external cause status

== ENCOUNTER 2023-05-01 12:11 | Emergency (ER) | payer OTHER ==
[~2023-05-01] VITALS: Ht 157.4 cm; Wt 72.6 kg
[2023-05-01 12:24] VITALS: BP 119/93
[2023-05-01] MEDS ORDERED: PREDNISONE50 MG PO (12:31)
== END 2023-05-01 12:44 | disposition home or self-care (01) ==
LOC: ED 12:11
DX: L25.9 Unspecified contact dermatitis, unspecified cause (principal); F32.A Depression, unspecified; Z98.51 Tubal ligation status; Z98.890 Other specified postprocedural states; F15.90 Other stimulant use, unspecified, uncomplicated; F12.90 Cannabis use, unspecified, uncomplicated

== ENCOUNTER 2023-07-13 22:58 | Emergency (ER) | payer OTHER ==
[~2023-07-13] VITALS: Ht 157.4 cm; Wt 68.0 kg
[~2023-07-13 22:58] MED LIST changes: +PREDNISONE50 MG PO
[2023-07-13 23:09] VITALS: BP 159/89
[2023-07-14 00:29] LABS: BILIRUBIN Negative (Negative); BLOOD 3+ (Negative); CLARITY Cloudy (Clear); COLOR Yellow (Yellow); GLUCOSE Negative (Negative); KETONE Trace (Negative); LEUKO ESTERASE 1+ (Negative); NITRITE Positive (Negative); PH 5.5 (4.5-8.0); SPECIFIC GRAVITY 1.025 (1.001-1.030); UROBILINOGEN 0.2 E.U./dl (0.0-1.0)
[2023-07-14 00:45] LABS: BACTERIA 4+; EPITHELIAL CELLS 41-50
[2023-07-14 00:46] LABS: RBC 21-30 rbc/hpf (0-2); WBC 31-40 wbc/hpf (0-5)
[2023-07-14 00:58] LABS: BASO % 0.3 % (0.0-1.0); EOS # 0.3 10*3/uL (0.0-0.4); EOS % 3.2 % (1.0-4.0); HEMATOCRIT 36.3 % (37.0-47.0); LYMPH # 2.2 10*3/uL (1.3-4.4); LYMPH % 27.7 % (27.0-41.0); MEAN CELL VOLUME 87.7 fl (81.0-99.0); MEAN CORPUSCULAR HGB CONC 34.2 g/dl (33.0-37.0); MEAN PLATELET VOLUME 9.3 fl (9.6-12.3); MONO # 0.6 10*3/uL (0.1-1.0); MONO % 7.9 % (3.0-9.0); NEUT # 4.7 10*3/uL (2.3-7.9); NEUT % 60.6 % (47.0-73.0); PLATELET COUNT AUTOMATED 278 10*3/uL (130-400); RED BLOOD COUNT 4.14 10*6/uL (4.10-5.10); WHITE BLOOD COUNT 7.8 10*3/uL (4.8-10.8)
[2023-07-14 01:20] LABS: ALKALINE PHOSPHATASE 90 U/L (46-116); BUN 13 mg/dl (9-23); CHLORIDE 108 mmol/L (98-107); POTASSIUM 3.8 mmol/L (3.4-5.1); SGPT/ALT 8 U/L (5-49); TOTAL PROTEIN 7.4 gm/dL (6.0-8.0)
[2023-07-14] MEDS ORDERED: OMNICEF300 MG PO (01:27)
== END 2023-07-14 03:19 | disposition home or self-care (01) ==
LOC: ED 22:58
PROVIDERS: Family Medicine; Student in an Organized Health Care Education/Training Program
DX: N39.0 Urinary tract infection, site not specified (principal); Z20.822 Contact with and (suspected) exposure to COVID-19; J06.9 Acute upper respiratory infection, unspecified; Z98.51 Tubal ligation status

== ENCOUNTER 2023-09-02 14:51 | Emergency (ER) | payer OTHER ==
[~2023-09-02] VITALS: Ht 157 cm; Wt 72.1 kg
[2023-09-02 14:58] VITALS: BP 120/73
[2023-09-02 15:38] LABS: BASO % 0.1 % (0.0-1.0); EOS # 0.1 10*3/uL (0.0-0.4); EOS % 0.7 % (1.0-4.0); HEMATOCRIT 39.8 % (37.0-47.0); LYMPH # 1.1 10*3/uL (1.3-4.4); LYMPH % 7.5 % (27.0-41.0); MEAN CELL VOLUME 90.7 fl (81.0-99.0); MEAN CORPUSCULAR HGB 29.4 pg (27.0-31.0); MEAN CORPUSCULAR HGB CONC 32.4 g/dl (33.0-37.0); MEAN PLATELET VOLUME 9.3 fl (9.6-12.3); MONO # 1.1 10*3/uL (0.1-1.0); MONO % 7.5 % (3.0-9.0); NEUT # 12.1 10*3/uL (2.3-7.9); NEUT % 83.7 % (47.0-73.0); PLATELET COUNT AUTOMATED 245 10*3/uL (130-400); RED BLOOD COUNT 4.39 10*6/uL (4.10-5.10); RED CELL DISTRI WIDTH 13.2 % (0-14.5); WHITE BLOOD COUNT 14.5 10*3/uL (4.8-10.8)
[2023-09-02 15:54] LABS: ALKALINE PHOSPHATASE 74 U/L (46-116); BUN 9 mg/dl (9-23); CHLORIDE 106 mmol/L (98-107); TOTAL PROTEIN 7.9 gm/dL (6.0-8.0)
[2023-09-02 15:59] LABS: SGPT/ALT < 7 U/L (5-49)
[2023-09-02 18:02] LABS: BILIRUBIN Negative (Negative); BLOOD Trace-Lysed (Negative); CLARITY Clear (Clear); COLOR Yellow (Yellow); GLUCOSE Negative (Negative); KETONE Negative (Negative); LEUKO ESTERASE 2+ (Negative); NITRITE Positive (Negative); PH 5.5 (4.5-8.0); SPECIFIC GRAVITY <= 1.005 (1.001-1.030); UROBILINOGEN 0.2 E.U./dl (0.0-1.0)
[2023-09-02 18:16] LABS: WBC 41-50 wbc/hpf (0-5)
[2023-09-02 18:17] LABS: BACTERIA 4+
[2023-09-02] MEDS ORDERED: AMOX-CLAV 875-1 EACH PO (18:24)
== END 2023-09-02 19:15 | disposition home or self-care (01) ==
LOC: ED 14:51
PROVIDERS: Emergency Medicine
DX: R21 Rash and other nonspecific skin eruption (principal); R50.9 Fever, unspecified; N39.0 Urinary tract infection, site not specified; F32.A Depression, unspecified; Z98.51 Tubal ligation status; Z98.890 Other specified postprocedural states; F12.90 Cannabis use, unspecified, uncomplicated; F17.200 Nicotine dependence, unspecified, uncomplicated; Z20.822 Contact with and (suspected) exposure to COVID-19

== ENCOUNTER 2023-11-05 06:06 | Emergency (ER) | payer OTHER ==
[~2023-11-05] VITALS: Ht 157.4 cm; Wt 70.8 kg
[~2023-11-05 06:06] MED LIST changes: +AMOX-CLAV 875-1 EACH PO
[2023-11-05] MEDS ORDERED: IOHEXOL 300 MG/ML 100 ML VIAL IV ONE (06:15)
[2023-11-05] MEDS ORDERED: SODIUM CHLORIDE 0.9% 1,000 ML IV ONE ×2 (06:19→07:50)
[2023-11-05] MEDS ORDERED: IOHEXOL 300 MG/ML 100 ML VIAL ONE (06:26)
[2023-11-05] MEDS ORDERED: Ondansetron Hydrochloride 4 MG/2 ML VIAL IV ONE (07:50)
[2023-11-05] MEDS ORDERED: fentaNYL CITRATE/PF 50 MCG/ML SYRINGE IV ONE (07:50)
[2023-11-05 08:33] LABS: BASO % 0.3 % (0.0-1.0); EOS # 0.2 10*3/uL (0.0-0.4); EOS % 1.4 % (1.0-4.0); HEMATOCRIT 35.3 % (37.0-47.0); LYMPH # 1.6 10*3/uL (1.3-4.4); LYMPH % 11.6 % (27.0-41.0); MEAN CELL VOLUME 89.8 fl (81.0-99.0); MEAN CORPUSCULAR HGB 28.8 pg (27.0-31.0); MEAN PLATELET VOLUME 9.5 fl (9.6-12.3); MONO # 0.6 10*3/uL (0.1-1.0); MONO % 4.7 % (3.0-9.0); NEUT # 11.3 10*3/uL (2.3-7.9); NEUT % 81.7 % (47.0-73.0); PLATELET COUNT AUTOMATED 269 10*3/uL (130-400); RED BLOOD COUNT 3.93 10*6/uL (4.10-5.10); RED CELL DISTRI WIDTH 13.2 % (0-14.5); WHITE BLOOD COUNT 13.8 10*3/uL (4.8-10.8)
[2023-11-05 08:48] LABS: ACT PARTIAL THROMBO TIME 23.9 SECONDS (20.0-32.1)
[2023-11-05 08:56] VITALS: BP 103/58; BP 107/72; BP 115/75
[2023-11-05 08:57] LABS: ALKALINE PHOSPHATASE 70 U/L (46-116); BUN 14 mg/dl (9-23); CHLORIDE 109 mmol/L (98-107); POTASSIUM 3.5 mmol/L (3.4-5.1); SGPT/ALT 19 U/L (5-49); TOTAL PROTEIN 7.3 gm/dL (6.0-8.0)
== END 2023-11-05 08:58 | disposition short-term general hospital (02) ==
LOC: ED 06:06
PROVIDERS: Internal Medicine
DX: S36.039A Unspecified laceration of spleen, initial encounter (principal); M25.561 Pain in right knee; M25.562 Pain in left knee; F32.A Depression, unspecified; Z98.890 Other specified postprocedural states; Z98.51 Tubal ligation status; F12.90 Cannabis use, unspecified, uncomplicated; F15.10 Other stimulant abuse, uncomplicated; V49.59XA Passenger injured in collision with other motor vehicles in traffic accident, initial encounter; Y93.89 Activity, other specified; Y92.410 Unspecified street and highway as the place of occurrence of the external cause; Y99.8 Other external cause status

== ENCOUNTER 2024-11-12 19:30 | Emergency (ER) | payer OTHER ==
[~2024-11-12] VITALS: Ht 157.4 cm; Wt 57.6 kg
[2024-11-12 19:37] VITALS: BP 132/92
[2024-11-12 20:07] LABS: BASO # 0.1 10*3/uL (0.0-0.1); BASO % 0.5 % (0.0-1.0); EOS # 0.2 10*3/uL (0.0-0.4); EOS % 2.2 % (1.0-4.0); MEAN CELL VOLUME 94.6 fl (81.0-99.0); MEAN CORPUSCULAR HGB 30.4 pg (27.0-31.0); MEAN CORPUSCULAR HGB CONC 32.1 g/dl (33.0-37.0); MEAN PLATELET VOLUME 9.6 fl (9.6-12.3); MONO # 0.7 10*3/uL (0.1-1.0); MONO % 7.3 % (3.0-9.0); NEUT # 6.7 10*3/uL (2.3-7.9); NEUT % 66.3 % (47.0-73.0); PLATELET COUNT AUTOMATED 484 10*3/uL (130-400); RED BLOOD COUNT 4.44 10*6/uL (4.10-5.10); WHITE BLOOD COUNT 10.1 10*3/uL (4.8-10.8)
[2024-11-12 20:35] LABS: BUN 16 mg/dl (9-23); CHLORIDE 105 mmol/L (98-107)
[2024-11-12] MEDS ORDERED: CLINDAMYCIN HCL 300 MG CAPSULE PO ONE (20:40)
[2024-11-12] MEDS ORDERED: Amoxicillin/Clavulanate Pota 875 MG TAB PO ONE (20:40)
[2024-11-12] MEDS ORDERED: Ketorolac Tromethamine 30 MG/ML VIAL IM ONE (20:40)
[2024-11-12] MEDS ORDERED: AMOX-CLAV 875-1 EACH PO (20:46)
[2024-11-12] MEDS ORDERED: CLINDAMYCIN HC300 MG PO (20:46)
== END 2024-11-12 20:50 | disposition home or self-care (01) ==
LOC: ED 19:30
PROVIDERS: Internal Medicine
DX: I88.9 Nonspecific lymphadenitis, unspecified (principal); Z98.890 Other specified postprocedural states; Z98.51 Tubal ligation status; Z87.891 Personal history of nicotine dependence

== ENCOUNTER 2024-12-09 14:40 | Inpatient (IN) | payer OTHER ==
[~2024-12-09] VITALS: Ht 157.4 cm; Wt 58.5 kg
[~2024-12-09 14:40] MED LIST changes: +CLINDAMYCIN HC300 MG PO
[2024-12-09 14:51] VITALS: BP 140/92
[2024-12-09] MEDS ORDERED: SODIUM CHLORIDE 0.9% 1,000 ML IV ONE ×3 (15:05→18:30)
[2024-12-09] MEDS ORDERED: Metoclopramide Hydrochloride 10 MG/2 ML VIAL IV ONE (15:05)
[2024-12-09] MEDS ORDERED: diphenhydrAMINE hydrochloride 50 MG/ML VIAL IV ONE (15:05)
[2024-12-09] MEDS ORDERED: MORPHINE Sulfate 2 MG/ML SYR IV ONE (15:05)
[2024-12-09 15:22] LABS: HEMATOCRIT 45.7 % (37.0-47.0); MEAN CELL VOLUME 91.8 fl (81.0-99.0); MEAN CORPUSCULAR HGB 31.1 pg (27.0-31.0); MEAN CORPUSCULAR HGB CONC 33.9 g/dl (33.0-37.0); MEAN PLATELET VOLUME 9.9 fl (9.6-12.3); PLATELET COUNT AUTOMATED 419 10*3/uL (130-400); RED BLOOD COUNT 4.98 10*6/uL (4.10-5.10); RED CELL DISTRI WIDTH 13.2 % (0-14.5); WHITE BLOOD COUNT 21.6 10*3/uL (4.8-10.8)
[2024-12-09 15:24] LABS: MANUAL DIFF REFLEX YES
[2024-12-09 15:41] LABS: PLATELET SUFFICIENCY NORMAL (NORMAL); TARGET CELLS FEW; TOTAL CELLS COUNTED 100 #CELLS
[2024-12-09 15:43] LABS: ALKALINE PHOSPHATASE 91 U/L (46-116); BUN 17 mg/dl (9-23); CHLORIDE 97 mmol/L (98-107); LIPASE 26 U/L (12-53); POTASSIUM 4.1 mmol/L (3.4-5.1); TOTAL PROTEIN 8.5 gm/dL (6.0-8.0)
[2024-12-09 15:44] LABS: SGPT/ALT < 7 U/L (5-49)
[2024-12-09] MEDS ORDERED: cefTRIAXone Sodium 1 GM/10 ML SYR IV ONE (16:40)
[2024-12-09 17:12] LABS: BILIRUBIN Negative (Negative); BLOOD Negative (Negative); CLARITY Clear (Clear); COLOR Yellow (Yellow); GLUCOSE Negative (Negative); KETONE 2+ (Negative); LEUKO ESTERASE Trace (Negative); NITRITE Negative (Negative); PH 5.5 (4.5-8.0); UROBILINOGEN 0.2 E.U./dl (0.0-1.0)
[2024-12-09 17:19] LABS: URINE AMPHETAMINES Positive (1000ng/ml); URINE BARBITURATES Negative (200ng/ml); URINE BENZODIAZEPINES Negative (200ng/ml); URINE CANNABINOIDS (THC) Positive (50ng/ml); URINE COCAINE Negative (300ng/ml); URINE METHADONE Negative (300ng/ml); URINE OPIATES Positive (300ng/ml); URINE PHENCYCLIDINE Negative (25ng/ml)
[2024-12-09 17:25] LABS: WBC 16-20 wbc/hpf (0-5)
[2024-12-09] MEDS ORDERED: BISACODYL 10 MG SUPP R PRN (18:10)
[2024-12-09] MEDS ORDERED: ACETAMINOPHEN 650 MG SUPP R PRN (18:10)
[2024-12-09] MEDS ORDERED: BISACODYL 5 MG TAB PO PRN (18:10)
[2024-12-09] MEDS ORDERED: Magnesium Hydroxide 30 ML UDC PO PRN (18:10)
[2024-12-09] MEDS ORDERED: ACETAMINOPHEN 325 MG TAB PO PRN (18:10)
[2024-12-09] MEDS ORDERED: Ondansetron Hydrochloride 4 MG/2 ML VIAL IV PRN (18:15)
[2024-12-09] MEDS ORDERED: Pantoprazole Sodium 40 MG VIAL IV PRN (18:15)
[2024-12-09] MEDS ORDERED: Ketorolac Tromethamine 15 MG/ML VIAL IV PRN (18:15)
[2024-12-09] MEDS ORDERED: IOHEXOL 9 MG/ML (IODINE) ORAL SOLUTION PO ONE (18:20)
[2024-12-09] MEDS ORDERED: IOHEXOL 300 MG/ML 100 ML VIAL IV ONE (20:00)
[2024-12-09] MEDS ORDERED: Piperacillin Sodium/Tazobact 50 ML IV SCH (20:00)
[2024-12-09 20:47] VITALS: BP 126/84
[2024-12-09 22:40] VITALS: BP 129/83
[2024-12-10] VITALS (9 sets, daily range): BP systolic 129–162; BP diastolic 84–100
[2024-12-10 06:19] LABS: BASO % 0.2 % (0.0-1.0); EOS # 0.1 10*3/uL (0.0-0.4); EOS % 0.3 % (1.0-4.0); HEMATOCRIT 39.8 % (37.0-47.0); MEAN CELL VOLUME 92.6 fl (81.0-99.0); MEAN CORPUSCULAR HGB 30.9 pg (27.0-31.0); MEAN CORPUSCULAR HGB CONC 33.4 g/dl (33.0-37.0); MEAN PLATELET VOLUME 10.4 fl (9.6-12.3); MONO # 0.7 10*3/uL (0.1-1.0); MONO % 3.9 % (3.0-9.0); NEUT # 15.1 10*3/uL (2.3-7.9); NEUT % 85.3 % (47.0-73.0); PLATELET COUNT AUTOMATED 365 10*3/uL (130-400); RED CELL DISTRI WIDTH 13.2 % (0-14.5); WHITE BLOOD COUNT 17.7 10*3/uL (4.8-10.8)
[2024-12-10 06:35] LABS: BUN 13 mg/dl (9-23); CHLORIDE 103 mmol/L (98-107); POTASSIUM 3.7 mmol/L (3.4-5.1)
[2024-12-10] MEDS ORDERED: metroNIDAZOLE 100 ML IV SCH (10:50)
[2024-12-10] MEDS ORDERED: Lactated Ringer's Solution 1,000 ML IV ONE ×2 (11:32→12:53)
[2024-12-10] MEDS ORDERED: MORPHINE Sulfate 5 MG/10 ML PF ONE (11:41)
[2024-12-10] MEDS ORDERED: MORPHINE Sulfate 30 MG/30 ML SYR IV SCH (12:30)
[2024-12-10] MEDS ORDERED: POTASSIUM CHLORIDE 10 MEQ in DEXTROSE 5% IN LACTATED RINGER 1,000 ML IV SCH (13:00)
[2024-12-10] MEDS ORDERED: MORPHINE Sulfate 50 MG in SODIUM CHLORIDE 0.9% 45 ML IV SCH (13:00)
[2024-12-10] MEDS ORDERED: ROCURONIUM BROMIDE 50 MG/5 ML SYRINGE IV ONE (14:07)
[2024-12-10] MEDS ORDERED: SEVOFLURANE 250 ML BOT INH ONE (14:07)
[2024-12-10] MEDS ORDERED: Lidocaine Hydrochloride 2% 50 ML MDV IM ONE (14:07)
[2024-12-10] MEDS ORDERED: Ondansetron Hydrochloride 4 MG/2 ML VIAL IV ONE (14:07)
[2024-12-10] MEDS ORDERED: SUGAMMADEX SODIUM 200 MG/2 ML VIAL IV ONE (14:07)
[2024-12-10] MEDS ORDERED: PROPOFOL 200 MG/20 ML VIAL IV ONE (14:07)
[2024-12-10] MEDS ORDERED: Midazolam Hydrochloride 2 MG/2 ML VIAL IV ONE (14:07)
[2024-12-10] MEDS ORDERED: fentaNYL CITRATE 100 MCG/2 ML VIAL IV ONE (14:07)
[2024-12-10] MEDS ORDERED: Dexamethasone Sodium Phospha 4 MG/ML VIAL IV ONE (14:07)
[2024-12-10] MEDS ORDERED: Phenylephrine Hydrochloride 1 MG/10 ML SYRINGE IV ONE (14:07)
[2024-12-10] MEDS ORDERED: Ketamine Hydrochloride 50 MG/5 ML SYRINGE IV ONE (14:07)
[2024-12-10] MEDS ORDERED: Succinylcholine Chloride 200 MG/10 ML SYRINGE IV ONE (14:07)
[2024-12-10] MEDS ORDERED: SODIUM CHLORIDE 0.9% 1,000 ML IV ONE ×2 (14:24→14:31)
[2024-12-10] MEDS ORDERED: CIPROFLOXACIN 200 ML IV SCH (22:00)
[2024-12-11] VITALS: BP 123/81
[2024-12-11] MEDS ORDERED: metroNIDAZOLE 100 ML IV SCH (04:00)
[2024-12-11] MEDS ORDERED: POTASSIUM CHLORIDE 10 MEQ in DEXTROSE 5% IN LACTATED RINGER 1,000 ML IV SCH ×2 (04:00→13:00)
[2024-12-11 05:30] LABS: ALKALINE PHOSPHATASE 61 U/L (46-116); BUN 10 mg/dl (9-23); CHLORIDE 105 mmol/L (98-107); POTASSIUM 3.9 mmol/L (3.4-5.1)
[2024-12-11 05:33] LABS: SGPT/ALT < 7 U/L (5-49)
[2024-12-11 06:02] LABS: BASO % 0.2 % (0.0-1.0); EOS # 0.1 10*3/uL (0.0-0.4); EOS % 0.4 % (1.0-4.0); MEAN CELL VOLUME 93.7 fl (81.0-99.0); MEAN CORPUSCULAR HGB 31.1 pg (27.0-31.0); MEAN CORPUSCULAR HGB CONC 33.2 g/dl (33.0-37.0); MEAN PLATELET VOLUME 11.1 fl (9.6-12.3); MONO # 1.5 10*3/uL (0.1-1.0); MONO % 8.7 % (3.0-9.0); NEUT # 12.9 10*3/uL (2.3-7.9); NEUT % 75.6 % (47.0-73.0); PLATELET COUNT AUTOMATED 342 10*3/uL (130-400); RED BLOOD COUNT 3.95 10*6/uL (4.10-5.10); RED CELL DISTRI WIDTH 13.2 % (0-14.5)
[2024-12-11 08:00] VITALS: BP 135/85
[2024-12-11] MEDS ORDERED: Enoxaparin Sodium 40 MG/0.4 ML SYR SC SCH (08:00)
[2024-12-11 12:00] VITALS: BP 132/92
[2024-12-11 16:00] VITALS: BP 124/82
[2024-12-11 20:00] VITALS: BP 139/90
[2024-12-12] VITALS: BP 144/82; BP 144/92
[2024-12-12 05:38] LABS: ALKALINE PHOSPHATASE 58 U/L (46-116); CHLORIDE 104 mmol/L (98-107); POTASSIUM 3.3 mmol/L (3.4-5.1); TOTAL PROTEIN 5.8 gm/dL (6.0-8.0)
[2024-12-12 05:39] LABS: BUN < 5 mg/dl (9-23); SGPT/ALT < 7 U/L (5-49)
[2024-12-12 06:27] LABS: BASO % 0.2 % (0.0-1.0); EOS # 0.3 10*3/uL (0.0-0.4); EOS % 2.7 % (1.0-4.0); HEMATOCRIT 37.3 % (37.0-47.0); MEAN CELL VOLUME 95.2 fl (81.0-99.0); MEAN CORPUSCULAR HGB 30.6 pg (27.0-31.0); MEAN CORPUSCULAR HGB CONC 32.2 g/dl (33.0-37.0); MEAN PLATELET VOLUME 11.4 fl (9.6-12.3); MONO # 1.2 10*3/uL (0.1-1.0); MONO % 10.7 % (3.0-9.0); NEUT # 6.9 10*3/uL (2.3-7.9); NEUT % 63.6 % (47.0-73.0); PLATELET COUNT AUTOMATED 306 10*3/uL (130-400); RED BLOOD COUNT 3.92 10*6/uL (4.10-5.10); RED CELL DISTRI WIDTH 13.5 % (0-14.5); WHITE BLOOD COUNT 10.8 10*3/uL (4.8-10.8)
[2024-12-12 08:00] VITALS: BP 131/90
[2024-12-12] MEDS ORDERED: POTASSIUM CHLORIDE IN WATER 100 ML IV SCH (08:00)
[2024-12-12] MEDS ORDERED: fentaNYL CITRATE 100 MCG/2 ML VIAL IV PRN (09:00)
[2024-12-12 12:00] VITALS: BP 129/92
[2024-12-12 16:00] VITALS: BP 142/95
[2024-12-12] MEDS ORDERED: MORPHINE Sulfate 2 MG/ML SYR IV PRN (16:50)
[2024-12-12 20:00] VITALS: BP 132/81
[2024-12-13] VITALS: BP 130/60
[2024-12-13 07:58] LABS: CHLORIDE 103 mmol/L (98-107); POTASSIUM 3.3 mmol/L (3.4-5.1)
[2024-12-13 07:59] LABS: BUN < 5 mg/dl (9-23)
[2024-12-13 08:00] VITALS: BP 142/94
[2024-12-13] MEDS ORDERED: POTASSIUM CHLORIDE IN WATER 100 ML IV SCH (09:00)
[2024-12-13] MEDS ORDERED: SODIUM CHLORIDE 0.9% 500 ML IV ONE (09:53)
[2024-12-13] MEDS ORDERED: Potassium Bicarbonate/Potass 25 MEQ TAB PO ONE (11:45)
[2024-12-13 12:00] VITALS: BP 140/89
[2024-12-13 16:00] VITALS: BP 145/85
[2024-12-13 20:00] VITALS: BP 155/100
[2024-12-14] VITALS: BP 140/84
[2024-12-14 06:59] LABS: BASO # 0.1 10*3/uL (0.0-0.1); BASO % 0.5 % (0.0-1.0); EOS # 0.5 10*3/uL (0.0-0.4); EOS % 4.9 % (1.0-4.0); HEMATOCRIT 35.7 % (37.0-47.0); MEAN CORPUSCULAR HGB 31.2 pg (27.0-31.0); MEAN CORPUSCULAR HGB CONC 33.9 g/dl (33.0-37.0); MEAN PLATELET VOLUME 10.4 fl (9.6-12.3); MONO # 0.8 10*3/uL (0.1-1.0); PLATELET COUNT AUTOMATED 356 10*3/uL (130-400); RED BLOOD COUNT 3.88 10*6/uL (4.10-5.10); RED CELL DISTRI WIDTH 13.2 % (0-14.5)
[2024-12-14 07:26] LABS: CHLORIDE 104 mmol/L (98-107); POTASSIUM 3.5 mmol/L (3.4-5.1)
[2024-12-14 07:28] LABS: BUN < 5 mg/dl (9-23)
[2024-12-14] MEDS ORDERED: MINERAL OIL 30 ML UDC PO ONE (07:45)
[2024-12-14 08:00] VITALS: BP 122/78
[2024-12-14] MEDS ORDERED: MORPHINE Sulfate 2 MG/ML SYR IV PRN (08:52)
[2024-12-14 12:00] VITALS: BP 136/98
[2024-12-14] MEDS ORDERED: ADVIL200 M1 PO (13:47)
[2024-12-14] MEDS ORDERED: KLOR-CON M2020 ME1 PO (13:47)
[2024-12-14] MEDS ORDERED: TYLENOL EXTRA500 MG PO (13:47)
[2024-12-14] MEDS ORDERED: METRONIDAZOLE500 M1 PO (13:47)
[2024-12-14] MEDS ORDERED: CIPRO500 MG PO (13:47)
[2024-12-14] MEDS ORDERED: IBUPROFEN 200 MG TAB PO PRN (13:55)
[2024-12-14] MEDS ORDERED: metroNIDAZOLE 500 MG TAB PO SCH (14:00)
[2024-12-14 16:00] VITALS: BP 146/85
[2024-12-14 20:00] VITALS: BP 147/98
[2024-12-14] MEDS ORDERED: Ciprofloxacin Hydrochloride 500 MG TAB PO SCH (22:00)
[2024-12-15] VITALS: BP 135/87
[2024-12-15 08:00] VITALS: BP 140/92
[2024-12-15 11:57] VITALS: BP 126/76
== END 2024-12-15 20:00 | disposition home or self-care (01) | DRG 224 ==
LOC: ED 14:40 → 4E 17:43 → EDHOLD 17:43 → 5E 17:43 → EDHOLD 18:17 → 4E 20:22 → 5E 12-12 12:03
PROVIDERS: Emergency Medicine; Internal Medicine; Student in an Organized Health Care Education/Training Program; ADMIT Student in an Organized Health Care Education/Training Program; ATTEND Student in an Organized Health Care Education/Training Program
PROC: 0DNA0ZZ Release Jejunum, Open Approach (ICD-10-PCS; principal; 2024-12-10)
PROC: 0DQV0ZZ Repair Mesentery, Open Approach (ICD-10-PCS; 2024-12-10)
PROC: 0D9670Z Drainage of Stomach with Drainage Device, Via Natural or Artificial Opening (ICD-10-PCS; 2024-12-10)
DX: K56.609 Unspecified intestinal obstruction, unspecified as to partial versus complete obstruction (principal); E88.09 Other disorders of plasma-protein metabolism, not elsewhere classified; E87.20 Acidosis, unspecified; E83.51 Hypocalcemia; K56.7 Ileus, unspecified; R65.10 Systemic inflammatory response syndrome (SIRS) of non-infectious origin without acute organ dysfunction; R82.4 Acetonuria; G43.909 Migraine, unspecified, not intractable, without status migrainosus; F15.10 Other stimulant abuse, uncomplicated; E86.0 Dehydration; A59.03 Trichomonal cystitis and urethritis; K52.9 Noninfective gastroenteritis and colitis, unspecified; K21.9 Gastro-esophageal reflux disease without esophagitis; D75.839 Thrombocytosis, unspecified; F19.10 Other psychoactive substance abuse, uncomplicated; D72.823 Leukemoid reaction; E87.8 Other disorders of electrolyte and fluid balance, not elsewhere classified; F11.10 Opioid abuse, uncomplicated; F12.10 Cannabis abuse, uncomplicated; Z98.51 Tubal ligation status; Z80.3 Family history of malignant neoplasm of breast; Z80.8 Family history of malignant neoplasm of other organs or systems; Z90.81 Acquired absence of spleen

== ENCOUNTER 2025-06-20 05:36 | Emergency (ER) | payer OTHER ==
[~2025-06-20] VITALS: Ht 157.5 cm; Wt 56.7 kg
[~2025-06-20 05:36] MED LIST changes: +ADVIL200 M1 PO; +ASPIRIN ADULT L81 M2 PO; +ATORVASTATIN CA40 M1 PO; +KLOR-CON M2020 ME1 PO; +METRONIDAZOLE500 M1 PO; +OMEPRAZOLE MAGN20 MG PO; +TOPIRAMATE25 M3 PO; +TYLENOL EXTRA500 MG PO
[2025-06-20] MEDS ORDERED: Ondansetron Hydrochloride 4 MG TAB SL ONE (05:40)
[2025-06-20 05:43] VITALS: BP 151/90
[2025-06-20 06:04] LABS: BILIRUBIN Negative (Negative); BLOOD Trace-Lysed (Negative); CLARITY Clear (Clear); COLOR Yellow (Yellow); KETONE 2+ (Negative); LEUKO ESTERASE 2+ (Negative); NITRITE Negative (Negative); PH 5.0 (4.5-8.0); SPECIFIC GRAVITY 1.025 (1.001-1.030); UROBILINOGEN 1.0 E.U./dl (0.0-1.0)
[2025-06-20 06:15] LABS: BASO # 0.1 10*3/uL (0.0-0.1); BASO % 0.5 % (0.0-1.0); EOS # 0.1 10*3/uL (0.0-0.4); EOS % 0.8 % (1.0-4.0); MEAN CELL VOLUME 94.3 fl (81.0-99.0); MEAN CORPUSCULAR HGB 31.5 pg (27.0-31.0); MEAN PLATELET VOLUME 10.7 fl (9.6-12.3); MONO # 1.0 10*3/uL (0.1-1.0); MONO % 9.4 % (3.0-9.0); NEUT # 7.0 10*3/uL (2.3-7.9); NEUT % 63.5 % (47.0-73.0); NUCLEATED RED BLOOD CELL 0.0 % (0.0-0.0); NUCLEATED RED BLOOD CELL 0.0 10*3/uL (0.0-0.0); PLATELET COUNT AUTOMATED 304 10*3/uL (130-400); RED CELL DISTRI WIDTH 13.3 % (0-14.5)
[2025-06-20 06:20] LABS: WBC 31-40 wbc/hpf (0-5)
[2025-06-20 06:21] LABS: BACTERIA TRACE; HYALINE CAST 0-2
[2025-06-20 06:22] LABS: BUN 19 mg/dl (9-23); SGPT/ALT 34 U/L (5-49)
[2025-06-20] MEDS ORDERED: AMOXICILLIN500 M2 PO (08:00)
== END 2025-06-20 08:10 | disposition home or self-care (01) ==
LOC: ED 05:36
PROVIDERS: Internal Medicine
DX: N39.0 Urinary tract infection, site not specified (principal); Z79.899 Other long term (current) drug therapy; Z79.82 Long term (current) use of aspirin; Z90.89 Acquired absence of other organs